=== PATIENT | female | born 1955 | race Caucasian/White ===

== ENCOUNTER 2023-10-22 11:47 | Emergency (ER) | payer MEDICAID ==
[~2023-10-22] VITALS: Ht 162.6 cm; Wt 52.1 kg
[~2023-10-22 11:47] MED LIST: LEVO500T91 PO
[2023-10-22 12:45] VITALS: BP 102/74; PULSE 97; RESP 17; TEMP 98; O2SAT 97
[2023-10-22] MEDS ORDERED: LORA-1126 PO (14:21)
== END 2023-10-22 14:28 | disposition home or self-care (01) ==
LOC: ER 11:47
DX: H69.81 Other specified disorders of Eustachian tube, right ear (principal); Z79.899 Other long term (current) drug therapy